=== PATIENT | female | born 1955 | race Caucasian/White ===

== ENCOUNTER → 2020-11-29 | Day surgery (SDC) | payer BC ==
[~2020-11-29] MED LIST: Albuterol 0.083% 2.5 MG/3 ML Neb Soln NEB PRN; Lactated Ringers 1,000 ML IV SCH; Lactated Ringers 1,000 ML ONE; Lidocaine 1% 6 ML ONE; Lidocaine 1%/Sod Bicarbonate in NS 8.4% 1 ML Syringe IDERM PRN; Midazolam 1 MG/ML 2 ML SDV ONE; Propofol 200 MG/20 ML SDV ONE; Sodium Chloride 0.9% 10 ML Syringe FLUSH PRN; fentaNYL 100 MCG/2 ML SDV ONE
--- NOTE | 2020-11-29 09:25 | PCM.PREANE ---
Preanesthetic Assessment - Procedure Proposed Procedure: Colonoscopy - Anesthesia/Transfusion/Family Hx Anesthesia History: Prior Anesthesia Reaction Type of Anesthesia Reaction: Excessive Nausea/Vomiting Family History of Anesthesia Reaction: No Transfusion History: Prior Transfusion Without Reaction Intubation History: Unknown - Review of Systems General: No Symptoms Pulmonary: Cough (Chronic smoker cough, diminished lung sounds) Gastrointestinal: Diarrhea (Prep induced) Neurological: No Symptoms Other: Reports: Easy Bruising, Diabetes, Thyroid Problems - Physical Assessment NPO Status Date: 11/29/20 NPO Status Time: 04:40 (Prep) Vital Signs: Last Vital Signs Temp 98.4 F 11/29/20 08:20 Pulse 84 11/29/20 08:20 Resp 20 11/29/20 08:20 BP 106/46 L 11/29/20 08:20 Pulse Ox 98 11/29/20 08:20 Height: 1.55 m Weight: 97.522 kg ASA Class: 3 Mental Status: Alert & Oriented x3 Airway Class: Mallampati = 2 Dentition: Reports: Edentulous Thyro-Mental Finger Breadths: 3 Mouth Opening Finger Breadths: 2 ROM/Head Extension: Full Lungs: Decreased Breath Sounds, Crackles Cardiovascular: Regular Rate, Regular Rhythm Other: Murmur - Lab Values: Laboratory Last Values POC Glucose 70 mg/dL (70-99) 11/29/20 08:42 - Allergies Allergies/Adverse Reactions: Allergies Allergy/AdvReac Type Severity Reaction Status Date / Time somatropin Allergy Rash Verified 11/29/20 08:46 - Blood Blood Available: No - Anesthesia Plan Pre-Op Medication Ordered: None - Acknowledgements Anesthesia Type Planned: MAC Pt an Appropriate Candidate for the Planned Anesthesia: Yes Alternatives and Risks of Anesthesia Discussed w Pt/Guardian: Yes Pt/Guardian Understands and Agrees with Anesthesia Plan: Yes PreAnesthesia Questionnaire HEENT History: Reports: Other (See Below) Other HEENT History: dry eyes, wears glasses, has dentures Cardiovascular History: Reports: High Cholesterol, Hypertension Other Cardiovascular History: HX murmur Respiratory History: Reports: COPD, Other (See Below) Other Respiratory History: bronchitis, cough Gastrointestinal History: Reports: Other (See Below) Other Gastrointestinal History: nausea Genitourinary History: Reports: Other (See Below) Other Genitourinary History: UTI, hematuria, right renal mass 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: Musculoskeletal History: Reports: Back Pain, Chronic, Osteoarthritis, Other (See Below) Other Musculoskeletal History: generalized pain, lumbar radiculitis, muscle pain Neurological History: Reports: Alzheimers Disease Other Neuro History: Left sciatic pain; patient denies alzheimers Psychiatric History: Reports: Addiction, Other (See Below) Other Psychiatric History: hx of ETOH abx Endocrine/Metabolic History: Reports: Diabetes, Type II, Hypothyroidism, Obesity/BMI 30+, Vitamin D Deficiency Hematologic History: Reports: Anemia, Iron Deficiency, Other (See Below) Other Hematologic History: abnormal brusing, hyponatremia, decreased iron, throbocytosis Immunologic History: Reports: None Oncologic (Cancer) History: Reports: Other (See Below) Other Oncologic History: renal cell cancer Dermatologic History: Reports: Cellulitis, Other (See Below) Other Dermatologic History: skin rash - Past Surgical History Head Surgeries/Procedures: Reports: None HEENT Surgical History: Reports: Cataract Surgery Cardiovascular Surgical History: Reports: None Respiratory Surgical History: Reports: None GI Surgical History: Reports: Bariatric Procedure, Cholecystectomy Female Surgical History: Reports: Section, Hysterectomy Male Surgical History: Reports: None Endocrine Surgical History: Reports: None Neurological Surgical History: Reports: None Musculoskeletal Surgical History: Reports: Carpal Tunnel Oncologic Surgical History: Reports: None Dermatological Surgical History: Reports: None Other Surgical History Comment: anterior colporrhaphy, repair of cystocele, nephrectomy, ovarian adhesiolysis left ovary - SUBSTANCE USE Tobacco Use Status *Q: Current Every Day Tobacco User Tobacco Use Within Last Twelve Months: No Second Hand Smoke Exposure: Yes Days Per Week of Alcohol Use: 0 Number of Drinks Per Day: 0 Total Drinks Per Week: 0 Recreational Drug Use History: No - HOME MEDS Home Medications: Home Meds Albuterol [Proventil Neb Soln] 1 dose NEB Q4H PRN 11/28/20 [History] Albuterol/Ipratropium [Combivent Respimat] 1 puff INH Q4H PRN 11/28/20 [History] Aspirin 81 mg PO DAILY 11/28/20 [History] Budesonide [Pulmicort] 1 dose NEB BID PRN 11/28/20 [History] Calcium Carbonate/Vitamin D3 [Calcium 250+D] 1 tab PO DAILY 11/28/20 [History] Canagliflozin/Metformin HCl [Invokamet Xr 150-1,000 mg Tab] 2 tab PO DAILY 11/28/20 [History] Cholecalciferol (Vitamin D3) [Vitamin D3] 5,000 unit PO DAILY 11/28/20 [History] Cyanocobalamin (Vitamin B-12) [Vitamin B-12] 250 mcg PO BID 11/28/20 [History] Cyclobenzaprine [Flexeril] 10 mg PO TID PRN 11/28/20 [History] Ferrous Sulfate [Iron] 325 mg PO DAILY 11/28/20 [History] Hydrocodone/Acetaminophen [HYDROcodone-Acetaminophen 10-325 MG] 1 tab PO Q8H PRN 11/28/20 [History] Levothyroxine Sodium [Euthyrox] 100 mcg PO DAILY 11/28/20 [History] Magnesium Oxide 250 mg PO DAILY 11/28/20 [History] Multivitamin 1 tab PO DAILY 11/28/20 [History] Pilocarpine [Salagen] 5 mg PO TID PRN 11/28/20 [History] Pyridoxine HCl (Vitamin B6) [Vitamin B-6] 100 mcg PO DAILY 11/28/20 [History] Rosuvastatin Calcium 10 mg PO DAILY 11/28/20 [History] Valsartan [Diovan] 320 mg PO DAILY 11/28/20 [History] buPROPion [Wellbutrin] 100 mg PO BID 11/28/20 [History] hydroCHLOROthiazide [Hydrochlorothiazide] 12.5 mg PO DAILY 11/28/20 [History] - CURRENT (IN HOUSE) MEDS Current Meds: Current Medications Albuterol (Albuterol 0.083% 2.5 Mg/3 Ml Neb Soln) 2.5 mg NEB ONETIME PRN PRN Reason: copd Stop: 11/29/20 18:00 Lactated Ringer's (Ringers, Lactated) 1,000 mls @ 125 mls/hr IV ASDIRECTED DOM Stop: 11/29/20 23:00 Last Admin: 11/29/20 08:20 Dose: 125 mls/hr Documented by: Lidocaine/Sodium Bicarbonate (Lidocaine 1%/Sod Bicarbonate In Ns 8.4% 1 Ml Syringe) 0.25 ml IDERM ONETIME PRN PRN Reason: Prior to IV Start Stop: 11/29/20 18:00 Last Admin: 11/29/20 08:20 Dose: 0.25 ml Documented by: Sodium Chloride (Sodium Chloride 0.9% 10 Ml Syringe) 10 ml FLUSH ASDIRECTED PRN PRN Reason: Keep Vein Open Stop: 11/29/20 18:00
--- NOTE | 2020-11-29 12:34 | PCM48HPAN ---
Post Anesthesia Note - EVALUATION WITHIN 48HRS OF ANESTHETIC Vital Signs in Normal Range: Yes Patient Participated in Evaluation: Yes Respiratory Function Stable: Yes Airway Patent: Yes Cardiovascular Function Stable: Yes Hydration Status Stable: Yes Pain Control Satisfactory: Yes Nausea and Vomiting Control Satisfactory: Yes Mental Status Recovered: Yes Vital Signs: Last Vital Signs Temp 97.3 F 11/29/20 12:26 Pulse 71 11/29/20 12:26 Resp 18 11/29/20 12:26 BP 96/52 L 11/29/20 12:26 Pulse Ox 99 11/29/20 12:26
--- NOTE | 2020-11-29 12:40 | PCM.PRNOTE ---
- Free Text/Narrative Note: Date: 11/29/2020 Procedure: diagnostic colonoscopy Indication: positive cologuard test Endoscopist: Billy Gutierrez MD Findings: fair prep. Technically challenging colonoscopy. The ileocecal valve was visualized and a small sessile polyp was seen within the cecum but was unable to be accessed for removal. After nearly an hour and twenty minutes of persisting, the decision was made to withdraw the scope. There was no apparent significant colon injury on withdrawal. No other polyps were identified. Detailed Report: The patient was taken to the endoscopy suite and placed in left lateral decubitus position. Timeout was performed and monitored anesthesia care was initiated. There were small external hemorrhoidal skin tags. Digital rectal exam was unremarkable. The colonoscope was inserted and advanced to the cecum. This was quite technically challenging due to multiple turns and redundancy of the colon. Abdominal maneuvers and patient repositioning were done in order to facilitate advancement of the scope. However, despite my best effort, the furthest I was able to advance the scope was level with the ileocecal junction, which was well visualized. There was a fair amount of murky fluid pooled at the base of the cecum. This was not adequately visualized, and there appeared to be a sessile polyp in the base of the cecum measuring less than 1 cm. This portion of the colon was never adequately accessed in order to successfully remove the polyp. I persisted in my effort to better access this portion of the colon for quite some time; after nearly an hour and a half without significant progress, the decision was made to abort the procedure to prevent inadvertent injury to the patient. The scope was withdrawn and mucosal surfaces inspected. No polyps were identified on withdrawal of the scope. There was no appreciable diverticular disease or hemorrhoidal disease.
== END | disposition home or self-care (01) ==
LOC: JD.SDS 07:58
PROVIDERS: ATTEND Surgery
DX: K63.5 Polyp of colon (principal); J44.9 Chronic obstructive pulmonary disease, unspecified; E11.9 Type 2 diabetes mellitus without complications; I10 Essential (primary) hypertension; E03.9 Hypothyroidism, unspecified; E87.1 Hypo-osmolality and hyponatremia; E66.3 Overweight; E55.9 Vitamin D deficiency, unspecified; E78.00 Pure hypercholesterolemia, unspecified; F17.210 Nicotine dependence, cigarettes, uncomplicated; Z88.8 Allergy status to other drugs, medicaments and biological substances; Z79.899 Other long term (current) drug therapy; Z79.890 Hormone replacement therapy; Z98.890 Other specified postprocedural states; Z90.49 Acquired absence of other specified parts of digestive tract; Z68.41 Body mass index [BMI] 40.0-44.9, adult
CPT/HCPCS: 45378; 82947; 94640; J2250; J2704; J3010; J7120; 00811

== ENCOUNTER 2021-01-01 13:19 | Emergency (ER) | payer BC ==
[2021-01-01] MEDS ORDERED: Sodium Chloride 0.9% 10 ML Syringe FLUSH PRN (13:54)
--- NOTE | 2021-01-01 15:03 | CR ---
Chest: Portable view of the chest was obtained. Comparison: Prior chest CT study of 10/22/20 and chest x-ray of 04/28/19. Stable scarring is noted within the right lung base. Slight parenchymal density is seen within the left base. This is not appreciated on prior chest CT. Lungs otherwise are clear. Bony structures show nothing acute. Heart size and mediastinum are within normal limits. Impression: 1. Slight parenchymal density within the left base. Difficult to exclude a minimal area of pneumonia if patient has any infectious symptoms. 2. No other acute abnormality is seen. Diagnostic code #3
--- NOTE | 2021-01-01 15:09 | EDM.PDOC ---
ED HPI GENERAL MEDICAL PROBLEM - General Chief Complaint: Chest Pain Stated Complaint: CHEST PAIN/SENT BY [facility] Time Seen by Provider: 01/01/21 13:37 Source of Information: Reports: Patient History Limitations: Reports: No Limitations - History of Present Illness INITIAL COMMENTS - FREE TEXT/NARRATIVE: The patient presents with left sided chest pain. This started 2 days ago. The pain is in the left chest. She has no shortness of breath. She has no fever, chills, cough, abdominal pain, nausea or vomiting. She has a history of heart disease, hypertension and hypercholesterolemia. She does smoke. Onset: Gradual Duration: Day(s): (2) Location: Reports: Chest Quality: Reports: Sharp Severity: Moderate Improves with: Reports: None Worsens with: Reports: None Associated Symptoms: Reports: Chest Pain, Shortness of Breath. Denies: Cough, Fever/Chills, Headaches, Nausea/Vomiting Middle Chest Pain Score (Numeric/FACES): 3 - Related Data Allergies Allergy/AdvReac Type Severity Reaction Status Date / Time No Known Allergies Allergy Verified 01/01/21 13:34 Home Meds: Home Meds Albuterol [Proventil Neb Soln] 1 dose NEB Q4H PRN 11/28/20 [History] Albuterol/Ipratropium [Combivent Respimat] 1 puff INH Q4H PRN 11/28/20 [History] Aspirin 81 mg PO DAILY 11/28/20 [History] Budesonide [Pulmicort] 1 dose NEB BID PRN 11/28/20 [History] Calcium Carbonate/Vitamin D3 [Calcium 250+D] 1 tab PO DAILY 11/28/20 [History] Canagliflozin/Metformin HCl [Invokamet Xr 150-1,000 mg Tab] 2 tab PO DAILY 11/28/20 [History] Cholecalciferol (Vitamin D3) [Vitamin D3] 5,000 unit PO DAILY 11/28/20 [History] Cyanocobalamin (Vitamin B-12) [Vitamin B-12] 250 mcg PO BID 11/28/20 [History] Cyclobenzaprine [Flexeril] 10 mg PO TID PRN 11/28/20 [History] Ferrous Sulfate [Iron] 325 mg PO DAILY 11/28/20 [History] Hydrocodone/Acetaminophen [HYDROcodone-Acetaminophen 10-325 MG] 1 tab PO Q8H PRN 11/28/20 [History] Levothyroxine Sodium [Euthyrox] 100 mcg PO DAILY 11/28/20 [History] Magnesium Oxide [Magnesium] 250 mg PO DAILY 11/28/20 [History] Multivitamin 1 tab PO DAILY 11/28/20 [History] Pilocarpine [Salagen] 5 mg PO TID PRN 11/28/20 [History] Pyridoxine HCl (Vitamin B6) [Vitamin B-6] 100 mcg PO DAILY 11/28/20 [History] Rosuvastatin Calcium 10 mg PO DAILY 11/28/20 [History] Valsartan [Diovan] 320 mg PO DAILY 11/28/20 [History] buPROPion [Wellbutrin] 100 mg PO BID 11/28/20 [History] hydroCHLOROthiazide [Hydrochlorothiazide] 12.5 mg PO DAILY 11/28/20 [History] Past Medical History HEENT History: Reports: Other (See Below) Other HEENT History: dry eyes, wears glasses, has dentures Cardiovascular History: Reports: High Cholesterol, Hypertension Other Cardiovascular History: HX murmur Respiratory History: Reports: COPD, Other (See Below) Other Respiratory History: bronchitis, cough Gastrointestinal History: Reports: Other (See Below) Other Gastrointestinal History: nausea Genitourinary History: Reports: Other (See Below) Other Genitourinary History: UTI, hematuria, right renal mass [employer]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: Musculoskeletal History: Reports: Back Pain, Chronic, Osteoarthritis, Other (See Below) Other Musculoskeletal History: generalized pain, lumbar radiculitis, muscle pain Neurological History: Reports: Alzheimers Disease Other Neuro History: Left sciatic pain Psychiatric History: Reports: Addiction Other Psychiatric History: hx of ETOH abx Endocrine/Metabolic History: Reports: Diabetes, Type II, Hypothyroidism, Obesity/BMI 30+, Vitamin D Deficiency Hematologic History: Reports: Anemia, Iron Deficiency, Other (See Below) Other Hematologic History: abnormal brusing, hyponatremia, decreased iron, throbocytosis Immunologic History: Reports: None Oncologic (Cancer) History: Reports: Other (See Below) Other Oncologic History: renal cell cancer Dermatologic History: Reports: Cellulitis, Other (See Below) Other Dermatologic History: skin rash - Past Surgical History Head Surgeries/Procedures: Reports: None HEENT Surgical History: Reports: Cataract Surgery Cardiovascular Surgical History: Reports: None Respiratory Surgical History: Reports: None GI Surgical History: Reports: Bariatric Procedure, Cholecystectomy Female Surgical History: Reports: Section, Hysterectomy Endocrine Surgical History: Reports: None Neurological Surgical History: Reports: None Musculoskeletal Surgical History: Reports: Carpal Tunnel Oncologic Surgical History: Reports: None Dermatological Surgical History: Reports: None Social & Family History - Tobacco Use Tobacco Use Status *Q: Current Every Day Tobacco User Years of Tobacco use: 45 Packs/Tins Daily: 0.5 - Caffeine Use Caffeine Use: Reports: Soda - Recreational Drug Use Recreational Drug Use: No ED ROS GENERAL - Review of Systems Review Of Systems: See Below Constitutional: Reports: No Symptoms HEENT: Reports: No Symptoms Respiratory: Reports: No Symptoms Cardiovascular: Reports: Chest Pain Endocrine: Reports: No Symptoms GI/Abdominal: Reports: No Symptoms : Reports: No Symptoms Musculoskeletal: Reports: No Symptoms ED EXAM, GENERAL - Physical Exam Exam: See Below Exam Limited By: No Limitations General Appearance: Alert, No Apparent Distress Ears: Normal External Exam Nose: Normal Inspection Head: Atraumatic, Normocephalic Neck: Normal Inspection Respiratory/Chest: No Respiratory Distress, Lungs Clear, Normal Breath Sounds Cardiovascular: Regular Rate, Rhythm, No Edema, No Murmur GI/Abdominal: Soft, Non-Tender, No Organomegaly, No Mass Back Exam: Normal Inspection Extremities: Normal Inspection #1 Interpretation EKG Date: 01/01/21 Time: 13:28 Rhythm: NSR Rate (Beats/Min): 82 [place]: Normal P-Wave: Present QRS: Normal ST-T: Normal QT: Normal Course - Vital Signs Last Recorded V/S: Last Vital Signs Temp 97 F 01/01/21 13:28 Pulse 83 01/01/21 13:28 Resp 16 01/01/21 13:28 BP 148/68 H 01/01/21 13:28 Pulse Ox 100 01/01/21 13:28 - Orders/Labs/Meds Orders: Active Orders 24 hr Category Date Time Status Cardiac Monitoring [RC] . DIRECTED Care 01/01/21 13:54 Active Peripheral IV Care [RC] . DIRECTED Care 01/01/21 13:55 Active Sodium Chloride 0.9% [Saline Flush] Med 01/01/21 13:54 Active 10 ml FLUSH ASDIRECTED PRN Peripheral IV Insertion Adult [OM.PC] Stat Oth 01/01/21 13:54 Ordered EKG 12 Lead [EK] Stat Ther 01/01/21 13:30 Ordered Medication Orders Sodium Chloride (Sodium Chloride 0.9% 10 Ml Syringe) 10 ml FLUSH ASDIRECTED PRN PRN Reason: Keep Vein Open Labs: Laboratory Tests 01/01/21 01/01/21 01/01/21 Range/Units 14:08 14:08 14:08 WBC 12.20 H (3.98-10.04) K/mm3 RBC 4.50 (3.98-5.22) M/mm3 Hgb 13.8 (11.2-15.7) gm/dl Hct 40.9 (34.1-44.9) % MCV 90.9 (79.4-94.8) fl MCH 30.7 (25.6-32.2) pg MCHC 33.7 (32.2-35.5) g/dl RDW Std Deviation 45.0 (36.4-46.3) fL Plt Count 435 H (182-369) K/mm3 MPV 9.5 (9.4-12.3) fl Neut % (Auto) 58.0 (34.0-71.1) % Lymph % (Auto) 24.3 (19.3-51.7) % Allen % (Auto) 6.3 (4.7-12.5) % Eos % (Auto) 10.5 H (0.7-5.8) Baso % (Auto) 0.7 (0.1-1.2) % Neut # (Auto) 7.08 H (1.56-6.13) K/mm3 Lymph # (Auto) 2.97 (1.18-3.74) K/mm3 Allen # (Auto) 0.77 H (0.24-0.36) K/mm3 Eos # (Auto) 1.28 H (0.04-0.36) K/mm3 Baso # (Auto) 0.08 (0.01-0.08) K/mm3 D-Dimer, Quantitative 0.47 (0.19-0.50) mg/L Sodium 134 L (136-145) mEq/L Potassium 4.1 (3.5-5.1) mEq/L Chloride 98 (98-107) mEq/L Carbon Dioxide 21 (21-32) mEq/L Anion Gap 19.1 H (5-15) BUN 7 (7-18) mg/dL Creatinine 0.7 (0.55-1.02) mg/dL Est Cr Clr Drug Dosing 61.27 mL/min Estimated GFR (MDRD) > 60 (>60) mL/min BUN/Creatinine Ratio 10.0 L (14-18) Glucose 90 (70-99) mg/dL Calcium 9.1 (8.5-10.1) mg/dL Total Bilirubin 0.6 (0.2-1.0) mg/dL AST 19 (15-37) U/L ALT 24 (14-59) U/L Alkaline Phosphatase 47 (46-116) U/L Troponin I < 0.017 (0.00-0.056) ng/mL Total Protein 7.6 (6.4-8.2) g/dl Albumin 4.1 (3.4-5.0) g/dl Globulin 3.5 gm/dL Albumin/Globulin Ratio 1.2 (1-2) Meds: Medications Generic Name Dose Route Start Last Admin Trade Name Freq PRN Reason Stop Dose Admin Sodium Chloride 10 ml 01/01/21 13:54 Sodium Chloride 0.9% 10 Ml Syringe FLUSH ASDIRECTED PRN Keep Vein Open - Re-Assessments/Exams Free Text/Narrative Re-Assessment/Exam: 01/01/21 15:07 I ordered an EKG, CXR and labs. His EKG shows a NSR with no acute changes. Her CXR looks good. Her CBC and CMP look good. Her D-dimer and troponin are negative. I will discharge her home. Departure - Departure Time of Disposition: 15:10 Disposition: Home, Self-Care 01 Condition: Good Clinical Impression: Atypical chest pain Referrals: Zoran Ignacio MD [Primary Care Provider] - 1 Week Additional Instructions: Keep taking your medications as prescribed. Take tylenol or motrin as needed for pain. Follow up with Dr Corona. Please return if you are worse. Sepsis Event Note (ED) - Evaluation Sepsis Screening Result: No Definite Risk - Focused Exam Vital Signs: Vital Signs Temp Pulse Resp BP Pulse Ox 01/01/21 13:28 97 F 83 16 148/68 H 100 - My Orders Last 24 Hours: My Active Orders 01/01/21 13:30 EKG 12 Lead [EK] Stat 01/01/21 13:54 Cardiac Monitoring [RC] . DIRECTED Sodium Chloride 0.9% [Saline Flush] 10 ml FLUSH ASDIRECTED PRN Peripheral IV Insertion Adult [OM.PC] Stat 01/01/21 13:55 Peripheral IV Care [RC] . DIRECTED - Assessment/Plan Last 24 Hours: My Active Orders 01/01/21 13:30 EKG 12 Lead [EK] Stat 01/01/21 13:54 Cardiac Monitoring [RC] . DIRECTED Sodium Chloride 0.9% [Saline Flush] 10 ml FLUSH ASDIRECTED PRN Peripheral IV Insertion Adult [OM.PC] Stat 01/01/21 13:55 Peripheral IV Care [RC] . DIRECTED
== END 2021-01-01 15:15 | disposition home or self-care (01) ==
LOC: JD.ED 13:19
DX: R07.89 Other chest pain (principal); E78.00 Pure hypercholesterolemia, unspecified; I10 Essential (primary) hypertension; E11.9 Type 2 diabetes mellitus without complications; E03.9 Hypothyroidism, unspecified; E66.9 Obesity, unspecified; Z68.38 Body mass index [BMI] 38.0-38.9, adult; Z72.0 Tobacco use; Z79.82 Long term (current) use of aspirin; Z79.899 Other long term (current) drug therapy
CPT/HCPCS: 36415; 71045; 71045-26; 80053; 84484; 85025; 85379; 93005; 93010; 99283; 99285-25

== ENCOUNTER 2021-02-15 06:20 | Emergency (ER) | payer BC ==
--- NOTE | 2021-02-15 07:19 | EDM.PDOC ---
ED HPI GENERAL MEDICAL PROBLEM - General Chief Complaint: Respiratory Problem Stated Complaint: COVID+ CHEST PAIN Time Seen by Provider: 02/15/21 07:18 - History of Present Illness INITIAL COMMENTS - FREE TEXT/NARRATIVE: 65-year-old female presents the emergency room with worsening Covid symptoms. Patient was diagnosed at the health department on Thursday, now 2 days ago with Covid. She initially developed some intermittent headaches. At this time she has intermittent nausea at present is not nauseated. As increasing chest pressure with deep breathing. She has a history of COPD chest pain diabetes and multiple other medical problems fortunately the patient did have them during the vaccine. She is not aware of any fevers. She has not had any abdominal pain. Chest Pain Score (Numeric/FACES): 5 - Related Data Allergies Allergy/AdvReac Type Severity Reaction Status Date / Time No Known Allergies Allergy Verified 01/01/21 13:34 Home Meds: Home Meds Albuterol/Ipratropium [Combivent Respimat] 02/15/21 [History] Aspirin [Aspirin EC] 81 mg PO 02/15/21 [History] Empagliflozin/Metformin HCl [Synjardy Xr 25-1,000 mg Tablet] 02/15/21 [History] Levothyroxine 125 mcg PO ACBREAKFAST 02/15/21 [History] Rosuvastatin [Crestor] 10 mg PO DAILY 02/15/21 [History] buPROPion [Wellbutrin SR] 100 mg PO BEDTIME 02/15/21 [History] Past Medical History HEENT History: Reports: Other (See Below) Other HEENT History: dry eyes, wears glasses, has dentures Cardiovascular History: Reports: High Cholesterol, Hypertension Other Cardiovascular History: HX murmur Respiratory History: Reports: COPD, Other (See Below) Other Respiratory History: bronchitis, cough Gastrointestinal History: Reports: Other (See Below) Other Gastrointestinal History: nausea Genitourinary History: Reports: Other (See Below) Other Genitourinary History: UTI, hematuria, right renal mass [employer]IL[employer]ING TE[employer] History: Reports: Musculoskeletal History: Reports: Back Pain, Chronic, Osteoarthritis, Other (See Below) Other Musculoskeletal History: generalized pain, lumbar radiculitis, muscle pain Neurological History: Reports: Alzheimers Disease Other Neuro History: Left sciatic pain Psychiatric History: Reports: Addiction Other Psychiatric History: hx of ETOH abx Endocrine/Metabolic History: Reports: Diabetes, Type II, Hypothyroidism, Obesity/BMI 30+, Vitamin D Deficiency Hematologic History: Reports: Anemia, Iron Deficiency, Other (See Below) Other Hematologic History: abnormal brusing, hyponatremia, decreased iron, throbocytosis Immunologic History: Reports: None Oncologic (Cancer) History: Reports: Other (See Below) Other Oncologic History: renal cell cancer Dermatologic History: Reports: Cellulitis, Other (See Below) Other Dermatologic History: skin rash - Infectious Disease History Infectious Disease History: Reports: Novel Coronavirus - Past Surgical History Head Surgeries/Procedures: Reports: None HEENT Surgical History: Reports: Cataract Surgery Cardiovascular Surgical History: Reports: None Respiratory Surgical History: Reports: None GI Surgical History: Reports: Bariatric Procedure, Cholecystectomy Female Surgical History: Reports: Section, Hysterectomy Endocrine Surgical History: Reports: None Neurological Surgical History: Reports: None Musculoskeletal Surgical History: Reports: Carpal Tunnel Oncologic Surgical History: Reports: None Dermatological Surgical History: Reports: None Social & Family History - Tobacco Use Tobacco Use Status *Q: Current Every Day Tobacco User Years of Tobacco use: 25 Packs/Tins Daily: 1 - Caffeine Use Caffeine Use: Reports: Soda ED ROS GENERAL - Review of Systems Review Of Systems: See Below Constitutional: Reports: Fatigue HEENT: Reports: No Symptoms Respiratory: Reports: Pleuritic Chest Pain Cardiovascular: Reports: Chest Pain (Seems to be worse with breathing) GI/Abdominal: Reports: Nausea. Denies: Abdominal Pain, Constipation, Diarrhea, Vomiting : Reports: No Symptoms Musculoskeletal: Reports: Other (She seems to be achy all over) Skin: Reports: No Symptoms Neurological: Reports: Headache (Intermittent) Hematologic/Lymphatic: Reports: No Symptoms ED EXAM, GENERAL - Physical Exam Exam: See Below Exam Limited By: No Limitations General Appearance: Alert, No Apparent Distress Ears: Normal External Exam, Normal Canal, Hearing Grossly Normal, Normal TMs Nose: Normal Inspection, Normal Mucosa, No Blood Throat/Mouth: Normal Inspection, Normal Lips, Normal Gums, Normal Oropharynx, Normal Voice, No Airway Compromise Head: Atraumatic, Normocephalic Neck: Normal Inspection, Supple, Non-Tender, Full Range of Motion. No: Lymphadenopathy (L), Lymphadenopathy (R) Cardiovascular: Regular Rate, Rhythm, No Edema, No Murmur (Patient has a history of a murmur but I am not hearing one at this time) GI/Abdominal: Normal Bowel Sounds, Soft, Non-Tender, Other (Obese) Back Exam: Normal Inspection. No: CVA Tenderness (L), CVA Tenderness (R) Extremities: Normal Inspection, No Pedal Edema Neurological: Alert, Oriented, Normal Cognition #1 Interpretation EKG Date: 02/15/21 Rhythm: NSR Rate (Beats/Min): 66 [place]: Normal P-Wave: Present QRS: Other (Borderline low voltage extremity leads) ST-T: Normal QT: Normal Comparison: No Change (No significant change from 01/01/2021) EKG Interpretation Comments: Borderline EKG Course - Vital Signs Last Recorded V/S: Last Vital Signs Temp 36.9 C 02/15/21 06:34 Pulse 80 02/15/21 06:34 Resp 18 02/15/21 06:34 BP 145/66 H 02/15/21 06:34 Pulse Ox 95 02/15/21 06:34 - Orders/Labs/Meds Orders: Active Orders 24 hr Category Date Time Status Vital Signs [RC] Q15M Care 02/15/21 09:40 Active EPINEPHrine [Adrenalin] Med 02/15/21 09:40 Active 0.3 mg IM ASDIRECTED PRN Famotidine [Pepcid] Med 02/15/21 09:40 Active 20 mg IVPUSH ASDIRECTED PRN Sodium Chloride 0.9% [Saline Flush] Med 02/15/21 09:45 Active 30 ml FLUSH ASDIRECTED diphenhydrAMINE [Benadryl] Med 02/15/21 09:40 Active 50 mg IVPUSH ASDIRECTED PRN methylPREDNISolone Sod Succ [Solu-MEDROL] Med 02/15/21 09:40 Active 125 mg IVPUSH ASDIRECTED PRN Medication Orders Diphenhydramine HCl (Diphenhydramine 50 Mg/Ml Sdv) 50 mg IVPUSH ASDIRECTED PRN PRN Reason: hypersensitivity reaction Epinephrine HCl (Epinephrine 1 Mg/Ml Sdv) 0.3 mg IM ASDIRECTED PRN PRN Reason: hypersensitivity reaction Famotidine (Famotidine 20 Mg/2 Ml Sdv) 20 mg IVPUSH ASDIRECTED PRN PRN Reason: hypersensitivity reaction Methylprednisolone Sodium Succinate (Methylprednisolone Sodium Succinate 125 Mg/2 Ml Sdv) 125 mg IVPUSH ASDIRECTED PRN PRN Reason: hypersensitivity reaction Sodium Chloride (Sodium Chloride 0.9% 10 Ml Syringe) 30 ml FLUSH ASDIRECTED DOM Labs: Laboratory Tests 02/15/21 02/15/21 02/15/21 Range/Units 07:49 07:49 07:49 WBC 5.20 (3.98-10.04) K/mm3 RBC 4.29 (3.98-5.22) M/mm3 Hgb 13.1 (11.2-15.7) gm/dl Hct 40.4 (34.1-44.9) % MCV 94.2 (79.4-94.8) fl MCH 30.5 (25.6-32.2) pg MCHC 32.4 (32.2-35.5) g/dl RDW Std Deviation 45.8 (36.4-46.3) fL Plt Count 325 D (182-369) K/mm3 MPV 9.0 L (9.4-12.3) fl Neut % (Auto) 56.7 (34.0-71.1) % Lymph % (Auto) 31.2 (19.3-51.7) % Henry % (Auto) 9.2 (4.7-12.5) % Eos % (Auto) 2.5 (0.7-5.8) Baso % (Auto) 0.2 (0.1-1.2) % Neut # (Auto) 2.95 (1.56-6.13) K/mm3 Lymph # (Auto) 1.62 (1.18-3.74) K/mm3 Henry # (Auto) 0.48 H (0.24-0.36) K/mm3 Eos # (Auto) 0.13 (0.04-0.36) K/mm3 Baso # (Auto) 0.01 (0.01-0.08) K/mm3 Manual Slide Review Normal smear D-Dimer, Quantitative 0.30 (0.19-0.50) mg/L Sodium 138 D (136-145) mEq/L Potassium 4.1 (3.5-5.1) mEq/L Chloride 102 (98-107) mEq/L Carbon Dioxide 27 (21-32) mEq/L Anion Gap 13.1 (5-15) BUN 9 (7-18) mg/dL Creatinine 0.9 (0.55-1.02) mg/dL Est Cr Clr Drug Dosing TNP Estimated GFR (MDRD) > 60 (>60) mL/min BUN/Creatinine Ratio 10.0 L (14-18) Glucose 83 (70-99) mg/dL Calcium 9.6 (8.5-10.1) mg/dL Total Bilirubin 0.5 (0.2-1.0) mg/dL AST 24 (15-37) U/L ALT 38 (14-59) U/L Alkaline Phosphatase 43 L (46-116) U/L Lactate Dehydrogenase 194 (81-234) U/L Troponin I < 0.017 (0.00-0.056) ng/mL C-Reactive Protein 0.9 (<1.0) mg/dL Total Protein 6.9 (6.4-8.2) g/dl Albumin 3.4 (3.4-5.0) g/dl Globulin 3.5 gm/dL Albumin/Globulin Ratio 1.0 (1-2) Meds: Medications Generic Name Dose Route Start Last Admin Trade Name Freq PRN Reason Stop Dose Admin Diphenhydramine HCl 50 mg 02/15/21 09:40 Diphenhydramine 50 Mg/Ml Sdv IVPUSH ASDIRECTED PRN hypersensitivity reaction Epinephrine HCl 0.3 mg 02/15/21 09:40 Epinephrine 1 Mg/Ml Sdv IM ASDIRECTED PRN hypersensitivity reaction Famotidine 20 mg 02/15/21 09:40 Famotidine 20 Mg/2 Ml Sdv IVPUSH ASDIRECTED PRN hypersensitivity reaction Methylprednisolone Sodium Succinate 125 mg 02/15/21 09:40 Methylprednisolone Sodium Succinate 125 Mg/2 Ml Sdv IVPUSH ASDIRECTED PRN hypersensitivity reaction Sodium Chloride 30 ml 02/15/21 09:45 Sodium Chloride 0.9% 10 Ml Syringe FLUSH ASDIRECTED DOM Discontinued Medications Generic Name Dose Route Start Last Admin Trade Name Freq PRN Reason Stop Dose Admin Acetaminophen 650 mg 02/15/21 07:36 02/15/21 08:26 Acetaminophen 325 Mg Tab PO 02/15/21 07:37 650 mg NOW ONE Administration Bamlanivimab 700 mg/ 160 mls @ 310 mls/hr 02/15/21 10:15 02/15/21 10:19 Etesevimab 1,400 mg/ Sodium IV 02/15/21 10:45 310 mls/hr Chloride ONETIME ONE Administration - Re-Assessments/Exams Free Text/Narrative Re-Assessment/Exam: 02/15/21 07:44 Labs chest x-ray EKG ordered. Had a long discussion with the patient about sy mptoms to expect anticipate monoclonal antibody therapy after reviewing labs. 02/15/21 09:39 Labs and x-ray reviewed she does not appear to have severe disease we discussed the pros and cons of monoclonal antibody therapy and the patient would like to pursue this understanding full well that it is on a emergency use authorization 02/15/21 09:39 I spoke with the patient to provide information about REGEN-COV treatment. I offered them the Patient and Caregiver EUA REGEN-COV Fact Sheet to read and review. I stated the drug has been approved by an emergency use authorization (EUA} process and has not fully been FDA reviewed or approved. The patient meets the EUA requirements. I discussed there are other potential treatment options that are currently not FDA approved to treat COVID 19. Offered opportunity to ask questions and all questions were answered. The patient voiced understanding and agreed to proceed with treatment. Departure - Departure Time of Disposition: 10:31 Disposition: Home, Self-Care 01 Clinical Impression: COVID-19 - Discharge Information Referrals: Zoran Ignacio MD [Primary Care Provider] - Forms: ED Department Discharge Additional Instructions: Return to the emergency room with any questions problems or worsening symptoms. You received monoclonal antibody therapy here in the emergency room. Practice social isolation for 10 days from the beginning of onset of symptoms. Sepsis Event Note (ED) - Evaluation Sepsis Screening Result: No Definite Risk - Focused Exam Vital Signs: Vital Signs Temp Pulse Resp BP Pulse Ox 02/15/21 06:34 36.9 C 80 18 145/66 H 95 - My Orders Last 24 Hours: My Active Orders 02/15/21 09:40 Vital Signs [RC] Q15M EPINEPHrine [Adrenalin] 0.3 mg IM ASDIRECTED PRN Famotidine [Pepcid] 20 mg IVPUSH ASDIRECTED PRN diphenhydrAMINE [Benadryl] 50 mg IVPUSH ASDIRECTED PRN methylPREDNISolone Sod Succ [Solu-MEDROL] 125 mg IVPUSH ASDIRECTED PRN 02/15/21 09:45 Sodium Chloride 0.9% [Saline Flush] 30 ml FLUSH ASDIRECTED - Assessment/Plan Last 24 Hours: My Active Orders 02/15/21 09:40 Vital Signs [RC] Q15M EPINEPHrine [Adrenalin] 0.3 mg IM ASDIRECTED PRN Famotidine [Pepcid] 20 mg IVPUSH ASDIRECTED PRN diphenhydrAMINE [Benadryl] 50 mg IVPUSH ASDIRECTED PRN methylPREDNISolone Sod Succ [Solu-MEDROL] 125 mg IVPUSH ASDIRECTED PRN 02/15/21 09:45 Sodium Chloride 0.9% [Saline Flush] 30 ml FLUSH ASDIRECTED
[2021-02-15] MEDS ORDERED: Acetaminophen 325 MG Tab PO ONE (07:36)
--- NOTE | 2021-02-15 08:49 | CR ---
Chest: Portable view of the chest was obtained. Comparison: Prior chest x-ray on 01/01/21. Heart size and mediastinum are normal. Linear densities are noted within the right lung base most likely representing areas of scarring. Slight increased parenchymal change is seen within the left mid and lower lung which are fairly stable from prior exam raising the possibility of chronic COVID pneumonia. Lungs otherwise are clear. Heart size and mediastinum appear within normal limits for the patient's age. Slight scoliosis is noted within the spine with mild degenerative change. Impression: 1. Chest x-ray findings which are similar to prior exam. 2. Nothing acute is definitely appreciated. Diagnostic code #3
[2021-02-15] MEDS ORDERED: methylPREDNISolone Sodium Succinate 125 MG/2 ML SDV IVPUSH PRN (09:40)
[2021-02-15] MEDS ORDERED: Famotidine 20 MG/2 ML SDV IVPUSH PRN (09:40)
[2021-02-15] MEDS ORDERED: EPINEPHrine 1 MG/ML SDV IM PRN (09:40)
[2021-02-15] MEDS ORDERED: diphenhydrAMINE 50 MG/ML SDV IVPUSH PRN (09:40)
[2021-02-15] MEDS ORDERED: Sodium Chloride 0.9% 10 ML Syringe FLUSH SCH (09:45)
[2021-02-15] MEDS ORDERED: Bamlanivimab 700 MG, ETESEVIMAB 1,400 MG in Sodium Chloride 0.9% 100 ML IV ONE (10:15)
== END 2021-02-15 11:50 | disposition home or self-care (01) ==
LOC: JD.ED 06:20
DX: U07.1 COVID-19 (principal); E78.00 Pure hypercholesterolemia, unspecified; I10 Essential (primary) hypertension; J44.9 Chronic obstructive pulmonary disease, unspecified; M19.90 Unspecified osteoarthritis, unspecified site; E11.9 Type 2 diabetes mellitus without complications; E03.9 Hypothyroidism, unspecified; E66.9 Obesity, unspecified; Z72.0 Tobacco use; Z79.82 Long term (current) use of aspirin; Z79.899 Other long term (current) drug therapy
CPT/HCPCS: 36415; 71045; 80053; 83615; 84484; 85025; 85379; 86140; 93005; 99284; A9270; M0245; Q0245

== ENCOUNTER 2022-09-02 08:34 | Emergency (ER) | payer OTHER, BC ==
[2022-09-02] MEDS ORDERED: Lidocaine 1% 10 ML MDV INJECT ONE (12:02)
[2022-09-02] MEDS ORDERED: Bupivacaine 0.5% 10 ML SDV INJECT ONE (12:02)
== END 2022-09-02 13:24 | disposition home or self-care (01) ==
LOC: JD.ED 08:34
DX: S62.617A Displaced fracture of proximal phalanx of left little finger, initial encounter for closed fracture (principal); E78.00 Pure hypercholesterolemia, unspecified; E03.9 Hypothyroidism, unspecified; E11.9 Type 2 diabetes mellitus without complications; J44.9 Chronic obstructive pulmonary disease, unspecified; I10 Essential (primary) hypertension; E66.9 Obesity, unspecified; Z79.82 Long term (current) use of aspirin; Z79.899 Other long term (current) drug therapy; Z68.34 Body mass index [BMI] 34.0-34.9, adult; W22.09XA Striking against other stationary object, initial encounter
CPT/HCPCS: 26725; 71101; 73130; 73140; 99283; J3490; 29125

== ENCOUNTER 2022-10-23 12:03 | Emergency (ER) | payer BC ==
[2022-10-23 13:16] LABS: BASOPHILS PERCENT AUTO 0.9 % (0.1-1.2); EOSINOPHILS ABSOLUTE AUTO 0.67 K/mm3 (0.04-0.36); EOSINOPHILS PERCENT AUTO 6.2 (0.7-5.8); HEMATOCRIT 36.4 % (34.1-44.9); IMMATURE GRAN ABSOLUTE AUTO 0.06 K/mm3 (0.00-0.10); IMMATURE GRAN PERCENT AUTO 0.6 % (<=1.0); LYMPHOCYTES PERCENT AUTO 35.1 % (19.3-51.7); MEAN CORPUSCULAR HEMOGLOBIN 29.2 pg (25.6-32.2); MEAN CORPUSCULAR HGB CONC 32.7 g/dl (32.2-35.5); MEAN CORPUSCULAR VOLUME 89.2 fl (79.4-94.8); MEAN PLATELET VOLUME 9.4 fl (9.4-12.3); MONOCYTES PERCENT AUTO 7.4 % (4.7-12.5); NEUTROPHILS ABSOLUTE AUTO 5.39 K/mm3 (1.56-6.13); NEUTROPHILS PERCENT AUTO 49.8 % (34.0-71.1); PLATELET COUNT,PLT 459 K/mm3 (182-369); RED BLOOD CELL COUNT 4.08 M/mm3 (3.98-5.22); WHITE BLOOD CELL COUNT,WBC 10.82 K/mm3 (3.98-10.04)
[2022-10-23 13:22] LABS: HEMOGLOBIN 11.9 gm/dl (11.2-15.7)
[2022-10-23 13:32] LABS: PROTHROMBIN TIME 9.9 SECONDS (9.7-12.0)
[2022-10-23 13:33] LABS: PTT,PARTIAL THROMBOPLSTIN TIME 26.8 SECONDS (21.7-31.4)
[2022-10-23 13:34] LABS: INR < 0.93
[2022-10-23 13:38] LABS: ALBUMIN 3.8 g/dl (3.4-5.0); ANION GAP 15.2 (5-15); BILIRUBIN TOTAL 0.4 mg/dL (0.2-1.0); CALCIUM 9.1 mg/dL (8.5-10.1); CREATININE 1.3 mg/dL (0.55-1.02); EST CRCL DRUG DOSING (CG) 32.12 mL/min; MAGNESIUM 2.1 mg/dL (1.8-2.4); POTASSIUM,K 4.2 mEq/L (3.5-5.1); PROTEIN TOTAL,TP 7.5 g/dl (6.4-8.2)
[2022-10-23 13:42] LABS: APPEARANCE,URINE CLEAR (Clear); BILIRUBIN,URINE NEGATIVE (Negative); COLOR,URINE YELLOW (Yellow); GLUCOSE,URINE 2+ (Negative); KETONES,URINE NEGATIVE (Negative); LEUKOCYTE ESTERASE,URINE NEGATIVE (Negative); NITRITE,URINE NEGATIVE (Negative); OCCULT BLOOD,URINE NEGATIVE (Negative); PH,URINE 6.5 (5.0-8.0); PROTEIN,URINE NEGATIVE (Negative); UROBILINOGEN,URINE 0.2 (0.2-1.0)
[2022-10-23] MEDS ORDERED: Sodium Chloride 0.9% 1,000 ML IV ONE (14:10)
[2022-10-23] MEDS ORDERED: Sodium Chloride 0.9% 10 ML Syringe FLUSH PRN (14:10)
[2022-10-23 14:28] LABS: BACTERIA,URINE RARE /hpf (FEW); MUCUS,URINE NOT SEEN /hpf (FEW); RBC,URINE NOT SEEN /hpf (0-5); SQUAMOUS EPITHELIAL CELLS,UR 0-5 /hpf (0-5); WBC,URINE 0-5 /hpf (0-5)
== END 2022-10-23 14:45 | disposition home or self-care (01) ==
LOC: JD.ED 12:03
DX: R41.3 Other amnesia (principal); S06.0X0S Concussion without loss of consciousness, sequela; I10 Essential (primary) hypertension; J44.9 Chronic obstructive pulmonary disease, unspecified; E03.9 Hypothyroidism, unspecified; E11.9 Type 2 diabetes mellitus without complications; E66.9 Obesity, unspecified; Z68.41 Body mass index [BMI] 40.0-44.9, adult; Z79.82 Long term (current) use of aspirin; W11.XXXS Fall on and from ladder, sequela
CPT/HCPCS: 36415; 70450; 70450-26; 80053; 81001; 83735; 85025; 85610; 85730; 99285